=== PATIENT | male | born 1990 | race American Indian/Alaskan Native ===

== ENCOUNTER 2018-04-16 10:40 | Emergency (ER) | payer OTHER ==
[2018-04-16 10:48] VITALS: BP 135/85
[2018-04-16] MEDS ORDERED: ZOFRAN ODT PO ONE (10:58)
[2018-04-16] MEDS ORDERED: NORCO 7.5/325 PO ONE (10:58)
--- NOTE | 2018-04-16 10:59 | Emergency Department Report ---
Blank Doc - Documentation Documentation: patient is a 27-year-old [place] male who was on a ladder that was approximately 10 feet and was reaching for something and fell. Patient states he woke up laying on the ground. Patient states he has a global headache some mild neck soreness. Patient also is complaining of some right upper quadrant abdominal pain at the level of the lower anterior ribs. Patient states there is some mild photophobia with his headache. Patient being placed in a c-collar and CT of the head and neck and abdomen will be done.
--- NOTE | 2018-04-16 11:56 | Cat Scan Report ---
CT HEAD WITHOUT CONTRAST: HISTORY: Fall, loss of consciousness, head injury. TECHNIQUE: Sequential 2.5mm CT images. COMPARISON: none. FINDINGS: Cerebral Parenchyma: Within normal limits. Cerebellum: Within normal limits. Brainstem: Within normal limits. Ventricles: Normal. Sella: Normal. Extra-axial spaces: Normal. Basal Cisterns: Normal. Intracranial Hemorrhage: None. Midline Shift: None. Calvarium: Normal. Sinuses: Mild mucosal thickening is noted in the maxillary sinuses and right sphenoid sinus. Mastoid Air Cells: Normal. Visualized Orbits: Normal. IMPRESSION: Cranial CT scan within normal limits.
--- NOTE | 2018-04-16 11:59 | Cat Scan Report ---
CT SCAN OF THE CERVICAL SPINE: HISTORY: Fall, loss of consciousness, injury. TECHNIQUE: Contiguous 1.25 mm axial images of the cervical spine were obtained. Sagittal and coronal reformatted images. FINDINGS: There is normal alignment of the cervical spine. The body, pedicles and posterior ligaments appear normal. No evidence of fracture or subluxation is seen. The spinal canal appears normal. The prevertebral soft tissues appear normal. IMPRESSION: Unremarkable CT of the cervical spine. No acute process is noted.
--- NOTE | 2018-04-16 12:03 | Cat Scan Report ---
CT ABDOMEN PELVIS WITHOUT CONTRAST: HISTORY: Abdominal pain. COMPARISON: none. TECHNIQUE: Helical CT in 1.25mm intervals without IV contrast. Sagittal and coronal reconstructions. FINDINGS: Lung bases: Normal. Liver: Normal. Biliary system: Normal. Pancreas: Normal. Spleen: Normal. Kidneys/ureters/bladder: The kidneys are normal size and position. There is suggestion of minimal right perinephric hemorrhage. No obvious right renal parenchymal injury although no IV contrast was administered. The left kidney, collecting systems and bladder are unremarkable. Adrenal glands: Normal. Aorta: Normal. Intestines: Normal. Appendix: Normal. Pelvic viscera: Normal. Ascites: None. Adenopathy: None. Musculoskeletal: Normal. IMPRESSION: Minimal right perinephric hemorrhage, see above.
--- NOTE | 2018-04-16 13:49 | Emergency Department Report ---
ED General Adult HPI - General Chief complaint: Abdominal Pain Stated complaint: FALL/HEAD PAIN Time Seen by Provider: 04/16/18 10:55 Source: patient Mode of arrival: Ambulatory Limitations: No Limitations - History of Present Illness Initial comments: patient is a 27-year-old [place] male who was on a ladder that was approximately 10 feet and was reaching for something and fell. Patient states he woke up laying on the ground. Patient states he has a global headache some mild neck soreness. Patient also is complaining of some right upper quadrant abdominal pain at the level of the lower anterior ribs. Patient states there is some mild photophobia with his headache. Patient being placed in a c-collar and CT of the head and neck and abdomen will be done. MD Complaint: 1 Onset/Timin -: days(s) Location: neck, upper extremity (left shoulder and flank) Radiation: back, extremity Severity scale (0 -10): 4 Quality: aching Consistency: intermittent Worsens with: movement Associated Symptoms: headaches. denies: fever/chills, nausea/vomiting, shortness of breath, syncope, weakness Treatments Prior to Arrival: none - Related Data Previous Rx's Medication Instructions Recorded Last Taken Type Cyclobenzaprine [Flexeril] 10 mg PO TID PRN #30 tablet 04/16/18 Unknown Rx Menthol/Camphor [[place] 1 applicatio TP TID PRN #1 tube 04/16/18 Unknown Rx Ointment] Naproxen 500 mg PO BID PRN #30 tablet 04/16/18 Unknown Rx Allergies Allergy/AdvReac Type Severity Reaction Status Date / Time No Known Allergies Allergy Unverified 04/16/18 11:42 ED Review of Systems ROS: Stated complaint: FALL/HEAD PAIN Other details as noted in HPI Constitutional: denies: chills, fever Eyes: denies: eye pain, eye discharge, vision change ENT: denies: ear pain, throat pain Respiratory: denies: cough, shortness of breath, wheezing Cardiovascular: denies: chest pain, palpitations Endocrine: no symptoms reported Gastrointestinal: denies: abdominal pain, nausea, diarrhea Genitourinary: denies: urgency, dysuria Musculoskeletal: back pain. denies: joint swelling, arthralgia Skin: denies: rash, lesions Neurological: headache. denies: weakness, numbness, paresthesias, confusion, abnormal gait, vertigo Psychiatric: denies: anxiety, depression Hematological/Lymphatic: denies: easy bleeding, easy bruising ED Past Medical Hx - Medications Home Medications: Home Medications Medication Instructions Recorded Confirmed Last Taken Type Cyclobenzaprine [Flexeril] 10 mg PO TID PRN #30 tablet 04/16/18 Unknown Rx Menthol/Camphor [[place] 1 applicatio TP TID PRN #1 tube 04/16/18 Unknown Rx Ointment] Naproxen 500 mg PO BID PRN #30 tablet 04/16/18 Unknown Rx ED Physical Exam - General Limitations: No Limitations General appearance: alert, in no apparent distress - Head Head exam: Present: atraumatic, normocephalic, normal inspection - Expanded Head Exam Expanded Head exam: Absent: laceration, abrasion, contusion, hematoma, racoon eyes, gilbert's sign, general tenderness, tenderness of temporal artery, CSF rhinorrhea , CSF otorrhea - Eye Eye exam: Present: normal appearance, PERRL, EOMI Pupils: Present: normal accommodation - ENT ENT exam: Present: normal orophraynx, mucous membranes moist, TM's normal bilaterally, normal external ear exam - Neck Neck exam: Present: normal inspection, tenderness, full ROM. Absent: meningismus, lymphadenopathy, thyromegaly (rigiht lateral neck muscle pain with deep palpation no posterior vertebral point tenderness rom inact including chin to chest bilat shoulders and full neck extension without restriction) - Respiratory Respiratory exam: Present: normal lung sounds bilaterally. Absent: respiratory distress - Cardiovascular Cardiovascular Exam: Present: regular rate, normal rhythm, normal heart sounds. Absent: systolic murmur, diastolic murmur, rubs, gallop - GI/Abdominal GI/Abdominal exam: Present: soft, normal bowel sounds. Absent: distended, tenderness, guarding, rebound, rigid, organomegaly, mass, bruit, pulsatile mass , hernia - Rectal Rectal exam: Present: deferred - Extremities Exam Extremities exam: Present: normal inspection, full ROM. Absent: tenderness - Back Exam Back exam: Present: normal inspection, full ROM, tenderness, CVA tenderness (R) , muscle spasm, paraspinal tenderness. Absent: vertebral tenderness, rash noted - Expanded Back Exam Expanded Back exam: Absent: saddle anesthesia Back exam: Negative Straight Leg Raising: Left, Right - Neurological Exam Neurological exam: Present: alert, oriented X3, CN II-XII intact, normal gait, reflexes normal - Expanded Neurological Exam Expanded Patient oriented to: Present: person, place, time Speech: Present: fluid speech Cranial nerves: EOM's Intact: Normal, Gag Reflex: Normal, Tongue Deviation: Normal, Nystagmus: Normal, Facial Sensation: Normal, Facial Palsy with Forehead Movement: Normal, Facial Palsy without Forehead Movement: Normal Cerebellar function: Finger to Nose: Normal, Heel to Frost: Normal, Romberg: Normal Upper motor neuron: Alistair Neglect: Normal, Pronator Drift: Normal, Babinski Sign : Normal, Sensory Extinction: Normal Sensory exam: Upper Extremity Light Touch: Normal, Upper Extremity Pin Prick: Normal, Upper Extremity Temperature: Normal, UE 2 Point Discrimination: Normal, Lower Extremity Light Touch: Normal, Lower Extremity Pin Prick: Normal, Lower Extremity Temperature: Normal, LE 2 Point Discrimination: Normal Motor strength exam: RUE: 5, LUE: 5, RLE: 5, LLE: 5 DTR: bicep (R): 2+, bicep (L): 2+, tricep (R): 2+, tricep (L): 2+, knee (R): 2+ , knee (L): 2+, ankle (R): 2+, ankle (L): 2+ Best Eye Response (Epifanio): (4) open spontaneously Best Motor Response (Epifanio): (6) obeys commands Best Verbal Response (Epifanio): (5) oriented [place] Total: 15 - Psychiatric Psychiatric exam: Present: normal affect, normal mood - Skin Skin exam: Present: warm, dry, intact, normal color. Absent: rash ED Course Vital Signs 04/16/18 04/16/18 10:45 11:40 Temperature 98.9 F Pulse Rate 67 Respiratory 17 18 Rate Blood Pressure 135/85 O2 Sat by Pulse 99 Oximetry ED Medical Decision Making - Medical Decision Making 7-year-old male fell approximately 10 feet from ladder there is no LOC patient was immediately ambulatory after accident now complains of right sided neck pain and left shoulder pain and right flank pain described as 510 achy soreness and with movement was no numbness no tingling or paralysis no posterior vertebral neck pain no loss of decrease in bowel or bladder function patient states 4/ 10 intermittent headache no nausea vomiting no dizziness no fevers chills CT normal no bleed normal C-spine CT C-spine cleared no EtOH involvement no major distracting injuries mild right perinephric hemorrhage although no hematuria no dysuria patient has 402 since presentation to ED without problems refuses UA at this time plan NSAID muscle relaxants what she therapy neck and shoulder exercises and follow PCP in 2-3 days. He verbalizes understanding and agreement with discharge plan will be DC'd to home in stable condition at this time. Patient's currently a/o x 3 gait steady. Critical care attestation.: If time is entered above; I have spent that time in minutes in the direct care of this critically ill patient, excluding procedure time. ED Disposition Clinical Impression: Flank pain Fall Qualifiers: Encounter type: initial encounter Qualified Code(s): W19.XXXA - Unspecified fall, initial encounter Neck muscle strain Qualifiers: Encounter type: initial encounter Qualified Code(s): S16.1XXA - Strain of muscle, fascia and tendon at neck level, initial encounter Disposition: DC-01 TO HOME OR SELFCARE Is pt being admited?: No Does the pt Need Aspirin: No Condition: Good Instructions: Muscle Strain (ED), Cervical Spine Strain (ED), Low Back Strain ( ED), Core Strengthening Exercises (GEN) Prescriptions: Cyclobenzaprine [Flexeril] 10 mg PO TID PRN #30 tablet PRN Reason: Muscle Spasm Menthol/Camphor [[place] Ointment] 1 applicatio TP TID PRN #1 tube PRN Reason: Pain Naproxen 500 mg PO BID PRN #30 tablet PRN Reason: pain Referrals: PRIMARY CARE, [Primary Care Provider] - 3-5 Days Forms: Work/School Release Form(ED) Time of Disposition: 14:01
== END 2018-04-16 14:25 | disposition home or self-care (01) ==
LOC: ED 10:40
DX: S16.1XXA Strain of muscle, fascia and tendon at neck level, initial encounter (principal); R10.11 Right upper quadrant pain; R51 Headache; W19.XXXA Unspecified fall, initial encounter; Y93.89 Activity, other specified; Y92.89 Other specified places as the place of occurrence of the external cause; Y99.8 Other external cause status
CPT/HCPCS: 70450; 72125; 74176; Q0162